=== PATIENT | female | born 1950 | race Caucasian/White ===

== ENCOUNTER → 2017-12-20 07:38 | Day surgery (SDC) | payer MEDICARE, BC ==
[~2017-12-20 07:38] MED LIST: Acetaminophen TAB* 325 MG PO PRN; Buffered Lidocaine 0.9% SYRIN* 5 ML/SYR SYRINGE INTRADERM ONE; Cyclopentolate 1% OPTH.SOL* 2 ML BTL ONE; Ketorolac 0.5% OPHTH (NF) 0.5 % 5 ML BTL ONE; Lidocaine 1% MPF* 2 ML VIAL ONE; Lidocaine 2% EPI 1:200000 MPF*10-20 ML VIAL ONE; Midazolam* 1 MG/ML 2 ML VIAL (2 MG) ONE; Neomycin/Polymy/Dex OPTH.SUSP* MAXITROL 0.1% 5 ML ONE; Phenylephrine 2.5% OPTH.SOL* 2 ML BTL ONE; Povidone Iodine 5% OPTH* 30 ML BTL ONE; Proparacaine 0.5% OPHTH.SOL* 15 ML BTL ONE; acetaZOLAMIDE TAB* 250 MG ONE
[2017-12-20 11:08] VITALS: BP 143/82
--- NOTE | 2017-12-20 12:11 | OP ---
OPERATIVE NOTE: DATE OF OPERATION: 12/20/17 DATE OF : 50 SURGEON: Tomer Becerril M.D. PREOPERATIVE DIAGNOSIS: Cataract, right eye. POSTOPERATIVE DIAGNOSIS: Cataract, right eye. OPERATIVE PROCEDURE: Extracapsular cataract extraction with intraocular lens implant, right eye. DESCRIPTION OF PROCEDURE: The patient was brought to the operating room after being given 1/2% Alcai ne with epinephrine drops in the preoperative area. The eye was prepped and draped in the usual ster ile fashion. Sterile drape and eyelid speculum were placed. Again, topical 1/2% Alcaine with epinep hrine was given. A paracentesis incision was made at the 9 o'clock position with the No.75 blade. Cl ear cornea incision 2.2 x 2.2-mm was created at the 12 o'clock position starting at the anterior limb us using the 2.2-mm keratome. The anterior chamber was irrigated with 0.4 mL of 1% non-preservative intracameral lidocaine and filled with DisCoVisc. A capsulorrhexis was completed using the cystotome and the Utrata forceps. Hydrodissection was performed with balanced salt solution. The lens nucleu s was removed with the Phacoemulsification handpiece without incident. Cortex was removed with the ir rigation-aspiration handpiece. The capsular bag was re-inflated using DisCoVisc and an [id number] imp lant was inserted with the shooter. The irrigation-aspiration handpiece was used to remove all residu al DisCoVisc. The eye was refilled with balanced salt solution and the wound checked and found to be watertight. Topical Maxitrol drops were given. [id number]/[facility] #: [id number]
== END | disposition home or self-care (01) ==
LOC: OREAST 07:38
PROVIDERS: ATTEND Specialist
DX: H25.811 Combined forms of age-related cataract, right eye (principal); E03.9 Hypothyroidism, unspecified; H52.229 Regular astigmatism, unspecified eye; H52.4 Presbyopia; K21.9 Gastro-esophageal reflux disease without esophagitis; H52.10 Myopia, unspecified eye; F41.8 Other specified anxiety disorders
CPT/HCPCS: A9270-GY; J2250; V2632

== ENCOUNTER 2017-12-27 10:49 | Day surgery (SDC) | payer MEDICARE, BC ==
[~2017-12-27 10:49] MED LIST changes: -Midazolam* 1 MG/ML 2 ML VIAL (2 MG) ONE
[2017-12-27] MEDS ORDERED: Midazolam* 1 MG/ML 2 ML VIAL (2 MG) ONE ×2 (13:31→13:38)
[2017-12-27] MEDS ORDERED: fentaNYL* 50 MCG/ML 2 ML VIAL (100 MCG VIAL) ONE (13:48)
[2017-12-27 14:20] VITALS: BP 102/63
--- NOTE | 2017-12-27 14:55 | OP ---
DATE OF OPERATION: 12/27/2017 - [facility] DATE OF : 1950. SURGEON: Tomer Becerril M.D. PREOPERATIVE DIAGNOSIS: Cataract left eye. POSTOPERATIVE DIAGNOSIS: Cataract left eye. OPERATIVE PROCEDURE: Extracapsular cataract extraction with intraocular lens implant left eye. DESCRIPTION OF PROCEDURE: The patient was brought to the operating room after being given 1/2% Alcaine with epinephrine drops in the preoperative area. The eye was prepped and draped in the usual sterile fashion. Sterile drape and eyelid speculum were placed. Again, topical 1/2% Alcaine with epinephrine was given. A paracentesis incision was made at the 3 o'clock position with the No.75 blade. Clear cornea incision 2.2 x 2.2-mm was created at the 6 o'clock position starting at the anterior limbus using the 2.2-mm keratome. The anterior chamber was irrigated with 0.4 mL of 1% non-preservative intracameral lidocaine and filled with DisCoVisc. A capsulorrhexis was completed using the cystotome and the Utrata forceps. Hydrodissection was performed with balanced salt solution. The lens nucleus was removed with the Phacoemulsification handpiece without incident. Cortex was removed with the irrigation-aspiration handpiece. The capsular bag was re-inflated using DisCoVisc and an [id number] implant was inserted with the shooter. The irrigation-aspiration handpiece was used to remove all residual DisCoVisc. The eye was refilled with balanced salt solution and the wound checked and found to be watertight. Topical Maxitrol drops were given. [id number]/[facility] #: [id number] [facility]
== END 2017-12-27 14:15 | disposition home or self-care (01) ==
LOC: OREAST 10:49
PROVIDERS: ATTEND Specialist
DX: H25.812 Combined forms of age-related cataract, left eye (principal); E03.9 Hypothyroidism, unspecified; E78.00 Pure hypercholesterolemia, unspecified; K21.9 Gastro-esophageal reflux disease without esophagitis; F41.8 Other specified anxiety disorders; M19.90 Unspecified osteoarthritis, unspecified site
CPT/HCPCS: A9270-GY; J2250; J3010; V2632

== ENCOUNTER 2019-05-07 09:07 | Day surgery (SDC) | payer MEDICARE, BC ==
--- NOTE | 2019-05-06 15:11 | HP ---
PREOPERATIVE HISTORY AND PHYSICAL: DATE OF SURGERY/ADMISSION: 05/07/19 DATE OF OFFICE VISIT/ENCOUNTER: 05/02/19 ATTENDING SURGEON: Kandy Holder MD.* (DICTATED BY JOAO BECKER) PROCEDURE: Trigger finger release, right ring finger. HISTORY OF PRESENT ILLNESS: This is a 69-year-old female who has had problems with triggering in her right ring finger since beginning of 2017. She has had a couple of cortisone injections, which are not long lasting. She has now agreed to proceed with surgical intervention. PAST MEDICAL HISTORY: 1. 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 2. History of high cholesterol. 3. Anxiety/depression. 4. GERD. PAST SURGICAL HISTORY: 1. Bilateral total hip arthroplasties. 2. Bilateral cataract removal. 3. Cholecystectomy. 4. D and C. 5. Tonsillectomy. 6. Microlaryngoscopy. 7. Skin removal after losing weight. CURRENT MEDICATIONS: 1. Centrum Silver for Adult 1 tab daily. 2. Escitalopram oxalate 20 mg daily. 3. Escitalopram oxalate 5 mg daily. 4. Esomeprazole 40 mg twice daily. 5. Levothyroxine sodium 112 mcg daily. 6. Liothyronine sodium 5 mcg daily. 7. MiraLAX b.i.d. 8. Mucinex Allergy p.r.n. ALLERGIES: No known drug allergies. FAMILY MEDICAL HISTORY: Heart disease, cancer, emphysema. SOCIAL HISTORY: The patient is retired. 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 She has 11 children. She denies tobacco use, but does vape marijuana on occasion. She drinks alcohol on occasion. REVIEW OF SYSTEMS: Negative for general, cephalic, cardiovascular, respiratory , GI, , other musculoskeletal, integumentary, endocrine, neurologic, and hematologic symptoms. Infectious Disease: Negative for history of MRSA, hepatitis C, HIV. PHYSICAL EXAMINATION GENERAL: Well-developed, well-nourished, 69-year-old female, in no acute distress. VITAL SIGNS: Height 4 feet 9 inches, weight 155 pounds, blood pressure 128/80, pulse rate 73. HEENT: Normocephalic, atraumatic. Pupils are equal, round, and reactive to light and accommodation. Extraocular movements are intact. Throat is clear. NECK: Supple. No palpable lymph nodes. PULMONARY: Lungs are clear to auscultation bilaterally. No wheezes, rales, or rhonchi. CARDIOVASCULAR: Regular rate and rhythm. S1, S2. No murmurs, rubs, or gallops. No edema. ABDOMEN: Positive bowel sounds, soft, nontender. NEUROLOGICAL: Alert and oriented x3. Cranial nerves II through XII are intact. Sensation is intact to light touch. MUSCULOSKELETAL: On exam of her right hand, she has tenderness to palpation at the A1 jenn of the ring finger. She makes a fist, but her ring finger locks in a flexed position and when she unlocks it, she lacked a little bit of an extension. Neurovascular function is intact. ASSESSMENT: Trigger finger, right ring finger. PLAN: The patient is scheduled to undergo a trigger finger release right ring finger with Dr. Holder on 05/07/19. She will return to the office 10 days postop for followup and suture removal. A prescription for Ultracet was e- scribed to the patient's pharmacy for postoperative pain management. JOAO BECKER [id number]/[facility] #: [id number] DANIEL
[~2019-05-07 09:07] MED LIST changes: -Acetaminophen TAB* 325 MG PO PRN; -Buffered Lidocaine 0.9% SYRIN* 5 ML/SYR SYRINGE INTRADERM ONE; +Buffered Lidocaine 1% SYRIN* 1 ML/SYRINGE INTRADERM ONE; -Cyclopentolate 1% OPTH.SOL* 2 ML BTL ONE; +Famotidine IV* 10 MG/ML 2 ML (20 mg) IV ONE; -Ketorolac 0.5% OPHTH (NF) 0.5 % 5 ML BTL ONE; +Lactated Ringers 1000 ML Bag* 1,000 ML IV SCH; +Lidocaine 1% INJ* 10 MG/ML 30 ML SDV ONE; -Lidocaine 1% MPF* 2 ML VIAL ONE; -Lidocaine 2% EPI 1:200000 MPF*10-20 ML VIAL ONE; -Neomycin/Polymy/Dex OPTH.SUSP* MAXITROL 0.1% 5 ML ONE; -Phenylephrine 2.5% OPTH.SOL* 2 ML BTL ONE; -Povidone Iodine 5% OPTH* 30 ML BTL ONE; -Proparacaine 0.5% OPHTH.SOL* 15 ML BTL ONE; -acetaZOLAMIDE TAB* 250 MG ONE
[2019-05-07] MEDS ORDERED: Famotidine IV* 10 MG/ML 2 ML (20 mg) ONE (09:38)
[2019-05-07] MEDS ORDERED: Midazolam* 1 MG/ML 5 ML VIAL (5 MG) ONE (10:30)
[2019-05-07] MEDS ORDERED: DiMENhydriNATE IV* 50 MG/ML VIAL ONE (10:31)
[2019-05-07] MEDS ORDERED: Lidocaine 2% PF * 5 ML VIAL ONE (11:24)
[2019-05-07] MEDS ORDERED: Ketorolac INJ* 30 MG/ML 1 ML VIAL ONE (11:24)
[2019-05-07] MEDS ORDERED: Propofol* 10 MG/ML 20 ML BTL ONE (11:24)
[2019-05-07] MEDS ORDERED: Acetaminophen TAB* 325 MG PO PRN (11:45)
--- NOTE | 2019-05-07 12:21 | OP ---
DATE OF OPERATION: 05/07/19 [facility] DATE OF : [birth year] SURGEON: Kandy Holder MD APPLIANCE LINE ASSEMBLER: JOAO Logan ANESTHESIA: Local MAC. PRE-OP DIAGNOSIS: Right ring finger trigger finger. POST-OP DIAGNOSIS: Right ring finger trigger finger. OPERATIVE PROCEDURE: Right ring finger trigger release. ESTIMATED BLOOD LOSS: Zero. TOURNIQUET TIME: About 10 minutes. INDICATIONS FOR PROCEDURE: Orquidea is a 69-year-old female who has triggering of her right ring finger. She has had several cortisone injections, presents now for trigger finger release. DESCRIPTION OF PROCEDURE: The patient was brought to the operating room, was given sedation anesthetic and a local infiltration of 10 cc of 1% plain lidocaine in the palm of her right hand. The skin of her right hand and forearm was prepped and draped in the usual sterile fashion. The hand and forearm were exsanguinated and the tourniquet elevated to 250 mmHg. A transverse incision was made centered over the A1 jenn of the right ring finger. We dissected bluntly through the subcutaneous tissue down to the A1 jenn. The digital neurovascular bundles were retracted by the neurosurgical nurse practitioner, Sonya Vences. The A1 jenn was incised longitudinally completely releasing the flexor tendons which were in good condition. The wound was irrigated and the skin edges reapproximated with 4-0 nylon suture. The wound was dressed with Xeroform, 4x4, Webril, and an Ramos wrap. The patient tolerated the procedure well and was brought to the recovery room in good condition. [id number]/[facility] #: [id number] MTDD
[2019-05-07 12:26] VITALS: BP 123/80
== END 2019-05-07 12:16 | disposition home or self-care (01) ==
LOC: OREAST 09:07
PROVIDERS: ATTEND Orthopaedic Surgery
DX: M65.341 Trigger finger, right ring finger (principal); E89.0 Postprocedural hypothyroidism; E78.00 Pure hypercholesterolemia, unspecified; F41.8 Other specified anxiety disorders; K21.9 Gastro-esophageal reflux disease without esophagitis
CPT/HCPCS: J1240; J1885; J2250; J2704